=== PATIENT | female | born 1995 | race African-American/Black ===

== ENCOUNTER 2022-06-22 15:30 | Outpatient (RCR) | payer BC, OTHER, SELFPAY ==
--- NOTE | 2022-05-13 14:36 | PTOPEVAL1 ---
Assessment and note entered by Gracie Gaines, PT Evaluation Information Assessment Status Evaluation Diagnosis lumbar radiculopathy Onset December 2021 Subjective Information increase activity with new job- more leaning over and taking blood pressures and different positions work restriction of no patient care; saw pain management and to have an injection- not scheduled yet; is able to do all home chores with increased pain, and sometimes do not do them, wait for another day; Reported Pain Level Pain Score Self Report Additional Pain Score Comments pain range of 0-8/10; dull, achey, numb and tingling into L LE-intermittent to all toes; when first wake up, usually good and less to no pain; reported standing/walking tolerance- 1 mile at best but varies; sleeping through the night without awakening; also have pain in upper back due to compensating and holding back different; decrease pain by lying supine on harder surface; do stretches for upper back-- wall angels and stretch backwards; do not do anything for lower back; have some prescription meds, but not take, not help; used heat in the past, but not lately; had PT prior to back surgery and it made her pain worse; Assessment PT Clinical Summary Maggi has the diagnosis of lumbar radiculopathy; reports radicular pain into L LE to toes- intermittent; She has had a lumbar discectomy in the past. Currently is on light duty at work; reports decreased walking and activity tolerance due to pain. Self assessment Oswestry score of 40% limitation in activity level. With the evaluation she has: decreased flexibility of L hip flexion, IR and ER motions with tightness of hamstring and piriformis. pain is increased with motions of standing trunk flexion > extension, supine R hip IR and L hip ER motions. There is decreased motion over her thoracic spine with rounded shoulders and forward head. Skilled PT services are indicated for modalities to decrease pain and spasms, therapeutic exercises to increase the strength and flexibility of her trunk and hips, with education for home exercises and posture correction. Plan of Care Interventions Elec
--- NOTE | 2022-06-22 16:11 | PTOPDC ---
Assessment and note entered by Ace Crowe, PT, DPT Evaluation Information Assessment Status Discharge Diagnosis lumbar radiculopathy Onset December 2021 Subjective Information Pt reports she is just at a 9/10 today. Pt states her pain is becoming more consistent and more intense. She is taking at least 1 hydrocodone a day and her sleep has been very disruptive. Pt reports some improvement with therapy, she states she could have done more with therapy if her pain had been more manageable. Pt states she feels like her back pain has gotten progressively worse since starting therapy. Reported Pain Level Pain Score 9: Self Report Assessment PT Clinical Summary Maggi presents to therapy today for her progress report following 12 visits of skilled therapy. Pt states she will not continue therapy until she is able to get an injection and she can get her pain more manageable. She demonstrates limitations with strength and ROM which are both limited by pain. She ambulates with an antalgic pattern with decreased stride length and gait speed. Pt would like to follow up with neurosurgery prior to continuing therapy. She will be discharged from therapy services at this time. Plan of Care Treatment Frequency and to be discharged Duration
== END 2022-07-07 15:05 | disposition home or self-care (01) ==
LOC: ANHGOSHPT 15:30
PROVIDERS: PCP Family Medicine
DX: M54.16 Radiculopathy, lumbar region (principal)
CPT/HCPCS: 97012; 97014; 97110; 97112; 97140; 97161; G0283

== ENCOUNTER → 2022-11-11 11:54 | Outpatient (CLI) | payer BC, SELFPAY ==
--- NOTE | ~2022-11-11 | US_ITS ---
EXAMINATION: US thyroid DATE: 11/11/2022 12:10 INDICATION: Thyroid nodule. TECHNIQUE: Multiple ultrasound images of the thyroid were obtained. COMPARISON: None. FINDINGS: The right thyroid lobe measures 4.7 x 1.3 x 1.7 cm. The left thyroid lobe measures 5.2 x 1.8 x 1.3 c m. In the right thyroid lobe, there is a 3 mm nodule. In the left thyroid lobe, there is a 3 mm nodu le. IMPRESSION: 1. Small thyroid nodules, likely not clinically significant. No follow-up is needed. Reviewed, dictated and finalized at location A. IMPRESSION: 1. Small thyroid nodules, likely not clinically significant. No follow-up is ne eded.
== END ==
PROVIDERS: PCP Family Medicine; Visit Provider Family Medicine
DX: E04.2 Nontoxic multinodular goiter (principal)
CPT/HCPCS: 76536